=== PATIENT | male | born 1980 | race Caucasian/White ===

== ENCOUNTER 2019-12-12 10:34 | Day surgery (SDC) | payer OTHER ==
[~2019-12-12] VITALS: Ht 177.8 cm; Wt 101.3 kg
[~2019-12-12 10:34] MED LIST: LIDOCAINE/PF 1%-EPI 1:200K, 30 ML ONE; ROPIvacaine/PF 0.5%, 30 ML ONE
[2019-12-12] MEDS ORDERED: LACTATED RINGERS 1,000 ML IV SCH (10:53)
[2019-12-12] MEDS ORDERED: FENTANYL PF 100 MCG/2ML ONE (10:56)
[2019-12-12] MEDS ORDERED: MIDAZOLAM 1 MG/ML, 2ML ONE (10:56)
[2019-12-12] MEDS ORDERED: GABAPENTIN 300 MG CAPSULE PO ONE (11:00)
[2019-12-12] MEDS ORDERED: ACETAMINOPHEN 500 MG TABLET PO ONE (11:00)
[2019-12-12 11:05] VITALS: BP 125/85
[2019-12-12] MEDS ORDERED: NO HOME MEDS (11:05)
[2019-12-12] MEDS ORDERED: ONDANSETRON 2MG/ML, 2ML ONE (11:35)
[2019-12-12] MEDS ORDERED: CEFAZOLIN 1,000 MG ONE (11:35)
[2019-12-12] MEDS ORDERED: PROPOFOL 10 MG/ML, 20ML ONE (11:35)
[2019-12-12] MEDS ORDERED: DEXAMETHASONE 4 MG/ML, 1ML ONE (11:35)
[2019-12-12] MEDS ORDERED: LIDOCAINE-MPF 2% ,5ML ONE (11:35)
[2019-12-12] MEDS ORDERED: KETOROLAC 30 MG/1 ML ONE (11:52)
[2019-12-12] MEDS ORDERED: ALBUTEROL/IPRATROPIUM 2.5MG/0.5MG, 3 ML NPPB PRN (12:30)
[2019-12-12] MEDS ORDERED: MIDAZOLAM 1 MG/ML, 2ML IV PRN (12:30)
[2019-12-12] MEDS ORDERED: MEPERIDINE/PF 25MG/ML,1ML IVPush PRN (12:30)
[2019-12-12] MEDS ORDERED: hydrALAzine 20 MG/ML, 1ML IV PRN (12:30)
[2019-12-12] MEDS ORDERED: OXYcodone 5 MG/5 ML ORAL.SOL UDC PO PRN (12:30)
[2019-12-12] MEDS ORDERED: METOPROLOL 1 MG/ML, 5ML IV PRN (12:30)
[2019-12-12] MEDS ORDERED: PROMETHAZINE 25 MG/ML, 1ML IV PRN (12:30)
[2019-12-12] MEDS ORDERED: HYDROmorphone 2 MG/ML, 1ML IVPush PRN (12:30)
[2019-12-12] MEDS ORDERED: FENTANYL PF 100 MCG/2ML IV PRN (12:30)
[2019-12-12] MEDS ORDERED: OXYcodone 5 MG/5 ML ORAL.SOL UDC ONE (13:00)
== END 2019-12-12 15:20 | disposition home or self-care (01) ==
LOC: OUT 10:34
PROVIDERS: ATTEND Orthopaedic Surgery
DX: S83.232A Complex tear of medial meniscus, current injury, left knee, initial encounter (principal); S83.282A Other tear of lateral meniscus, current injury, left knee, initial encounter; M94.262 Chondromalacia, left knee; F15.90 Other stimulant use, unspecified, uncomplicated; X58.XXXA Exposure to other specified factors, initial encounter; Y93.89 Activity, other specified; Y92.89 Other specified places as the place of occurrence of the external cause; Y99.8 Other external cause status
CPT/HCPCS: 29880; J0690; J1100; J1885; J2250; J2405; J2704; J2795; J3010; J3490; J7120